=== PATIENT | male | born 1945 | race Caucasian/White ===

== ENCOUNTER → 2018-01-21 08:39 | Outpatient (CLI) | payer MEDICARE, SELFPAY ==
--- NOTE | 2018-01-22 14:43 | DI.NM.S_ITS ---
DATE OF SERVICE: 01/21/2018 PROCEDURE PERFORMED: Exercise treadmill stress and rest myocardial perfusion imaging study with gating to assess ejection fraction and regional wall motion. ORDERING PROVIDER: Mainor Bryan MD INDICATIONS: The patient is a 72-year-old male with a history of an abnormal standard treadmill test who requires preoperative clearance prior to shoulder surgery. CARDIAC STRESS: The patient was able to exercise for a total of 10 minutes 8 seconds on a standard Asim protocol, suggesting excellent exercise capacity with an JACKIE of -40%. He had a normal heart rate and blood pressure response achieving a maximum heart rate of 142 BPM (97% of his predicted maximum) and had no chest discomfort. His resting ECG is normal, but he developed 2 mm to [address] depression in the inferolateral leads that persisted late into recovery, concerning for a possible ischemic response. There were no arrhythmias. At 9 minutes 14 seconds of exercise at a heart rate of 120 BPM, 27.3 mCi of technetium-99 Myoview was injected and the patient was imaged 15 minutes later using a gated SPECT acquisition protocol. The patient returned the following day and was reinjected with an additional 26.3 mCi of technetium-99 Myoview and was imaged 35 minutes later, again using a gated SPECT acquisition protocol. FINDINGS: 1. RAW DATA: There was fairly good myocardial tracer uptake. There appears to be some diaphragmatic attenuation. The lung/heart ratio was normal at 0.36 with a normal TID ratio of 0.81. 2. QUANTITATIVE GATED SPECT: Post stress ejection fraction is estimated at 70% without any focal wall motion abnormality, and specifically, the distal anteroapical segments have normal contractility. Resting ejection fraction is 68% with an end-diastolic volume of 101 mL. 3. MYOCARDIAL PERFUSION IMAGING: Post stress supine images show a fairly normal myocardial perfusion pattern but with a mild defect at the base of the inferior wall. In addition, there is a very small defect in the mid anteroseptum in a location that would be unusual for a vascular distribution. Both of these defects essentially resolve on prone imaging, revealing a more normal perfusion pattern. The resting images show a similar perfusion to the post stress supine images, again with a mild defect at the base and a defect in the mid anteroseptum. CONCLUSION: 1. Probable normal myocardial perfusion study. 2. Mild fixed [id number] anteroseptal defect that resolves on prone imaging, most likely consistent with chest wall attenuation. In addition, there is mild fixed proximal inferior defect that also resolves on prone imaging, most consistent with diaphragmatic attenuation. There is no compelling evidence for significant myocardial ischemia or previous myocardial infarction. 3. Normal left ventricular systolic function without any focal wall motion abnormality. 4. Excellent exercise capacity without angina. While there are significant ST segment shifts that could be consistent with ischemia, given the relatively normal perfusion images, this is likely a false positive. Overall, this is a low risk stress test for ischemia. Cory Ray - /paxton/ doc#: [id number]/job#: [id number] dd: 01/22/2018 12:40:00 dt: 01/22/2018 14:26:00 DICTATING MD/COPIES TO: Cory Casey MD; Mainor Bryan MD COPIES MNE: SAIRA ROMERO
== END ==
PROVIDERS: PCP Student in an Organized Health Care Education/Training Program; Visit Provider Student in an Organized Health Care Education/Training Program
DX: R06.09 Other forms of dyspnea (principal)
CPT/HCPCS: 78452; 93016; 93017; 93018; A9502